=== PATIENT | female | born 1980 | race Caucasian/White ===

== ENCOUNTER → 2017-04-03 | Outpatient (CLI) | payer OTHER ==
[~2017-04-03] MED LIST: IBUP-1050 PO; OXYC-609 PO
--- NOTE | 2017-04-03 12:34 | MAMMOGRAPHY REPORT ---
BILATERAL DIGITAL DIAGNOSTIC MAMMOGRAM TOMOSYNTHESIS WITH CAD AND TARGETED BILATERAL ULTRASOUND: 2016 CLINICAL HISTORY: The patient reports intermittent diffuse pain and heaviness of bilateral breasts fo r the last 3 months. She denies any palpable lumps or skin erythema. She denies any nipple discharg e but does report intermittent flaky skin involving bilateral nipples. TECHNIQUE: Breast tomosynthesis in addition to standard 2D mammography was performed. Current study was also evaluated with a Computer Aided Detection (CAD) system. Bilateral CC and MLO 2-D and tomosy nthesis images were obtained. COMPARISON: Comparison is made to exams dated: 10/14/2014 ultrasound, 10/14/2014 mammogram, 05/13/2014 ultrasound, 05/13/2014 mammogram, 07/28/2012 ultrasound, and 07/28/2012 mammogram - [facility]. BREAST COMPOSITION: The tissue of both breasts is heterogeneously dense, which may obscure small mas ses. FINDINGS: There are possible adjacent obscured masses seen within the right lateral breast on the cc view, for which ultrasound is recommended. Another faint asymmetry is seen within the left upper ou ter quadrant, which likely represents normal fibroglandular tissue although ultrasound is recommended . The remainder of both breasts are stable compared to prior exams, without suspicious masses, calcific ations, or areas of architectural distortion noted. Targeted ultrasound was performed of the right lateral breast in the region of the possible obscured masses. In the right 9:00 breast, 4 cm from the nipple, there are two adjacent hypoechoic solid appe aring masses, one of which measures 6 x 4 x 11 mm, and the other of which measures 7 x 13 x 5 mm. Th zhane masses are felt to correspond with the mammographic nodularity and may represent fibroadenomas ve rsus nodular normal fibroglandular tissue. Ultrasound of the left upper outer quadrant was performed , which shows an oval circumscribed hypoechoic 8 x 4 x 7 mm mass in the left 2:00 periareolar breast which appears similar to the right breast masses and may represent a fibroadenoma versus normal tissu e. Recommend ultrasound guided biopsy of the largest right breast mass for further evaluation. No s onographic correlate for the left upper outer quadrant asymmetry is seen; the asymmetry is benign and compatible with normal fibroglandular tissue. IMPRESSION: ACR BI-RADS CATEGORY 4A: LOW SUSPICION FOR MALIGNANCY, TARGETED ULTRASOUND ACR BI-RADS C ATEGORY 4A: LOW SUSPICION FOR MALIGNANCY 1. Three similar-appearing hypoechoic masses, 2 in the right breast at 9:00 and one in the left breas t at 2:00. The masses may represent fibroadenomas versus nodular normal fibroglandular tissue. Po mmend ultrasound guided biopsy of the largest mass in the right breast. Pending benign pathology res ults, recommend follow-up bilateral diagnostic mammograms and ultrasound in 6 months to reevaluate th e other similar-appearing masses. 2. No etiology for bilateral breast pain and heaviness evident. Recommend clinical follow-up. A phone call was made to the physician's office to confirm faxed results were received. The patient has been verbally notified of the results. She tentatively scheduled the biopsy before leaving the [facility]. Approximately 10% of breast cancers are not detected with mammography. A negative mammographic report should not delay biopsy if a clinically suggestive mass is present. Vanessa Hughes M.D. ah/:04/03/2017 11:33:46 Application Support Technician: Destinee CHAPARRO(Marvin)(Tish), [facility] letter sent: Abnormal 4/5 BI-RADS Code: ACR BI-RADS Category 4A: Low Suspicion For Malignancy Ultrasound BI-RADS: ACR BI-RADS Category 4A: Low Suspicion For Malignancy
== END | disposition home or self-care (01) ==
LOC: C.MAMM 09:49
PROVIDERS: ATTEND Family Medicine Adult Medicine
DX: Z12.31 Encounter for screening mammogram for malignant neoplasm of breast (principal); N63 Unspecified lump in breast; N64.89 Other specified disorders of breast

== ENCOUNTER → 2017-04-12 | Outpatient (CLI) | payer OTHER ==
--- NOTE | 2017-04-12 11:33 | Discharge Instructions ---
Discharge Instructions Procedure Procedure Date: Apr 12, 2017. Reason for visit: Right Mass. Discharge Discharge Date: Apr 12, 2017. Discharge Diagnosis: status post breast biopsy Instructions Activity Recommendations: Additional Limitations (see below) Return to School/Work: no limitations Recommended Home Diet: No Limitations Provider Instructions: ACTIVITY RECOMMENDATIONS: * No lifting, pushing, pulling or exercising the affected side for three days. RETURN TO SCHOOL/WORK: * You may return to work/school after the procedure, but do not perform any strenuous activities for 24 to 48 hours. MEDICATIONS: * Tylenol (two 325 mg) every four to six hours if needed for mild pain (if not allergic to Tylenol). DIET: * Resume previous diet. SPECIAL CARE INSTRUCTIONS: * Keep biopsy site dry for 24 hours. May shower after 24 hours, but do not soak (bathe) incision. * May remove Tegaderm (plastic patch) tomorrow AFTER showering. * Leave the steri-strips on for one week. Allow the steri-strips to fall off by themselves. If not off after one week, you may remove them. You may place a Bandaid crosswise over the strips, if desired. * Apply ice 10 minutes on and 10 minutes off as needed. * Wear a bra at bedtime to sleep more comfortably for 2-3 days. * Your referring physician should have the results after approximately 5 to 7 business days. * Call for unusual bleeding, fever, drainage, etc or if you have any questions call during normal business hours or after hours call Dr Hughes, [phone]. FOLLOW UP VISIT: Follow-up with Referring Physician as scheduled. Allergies Coded Allergies: Sulfamethoxazole w/Trimethoprim (Verified Allergy, Unknown, Swelling, 02/18) Geeta Dooley Recommendations: Call your doctor if: * Temperature above 101 degrees * Pain not relieved by pain medicine ordered * There is increased drainage or redness from any incision * You have any unanswered questions or concerns. Your Doctors Instructions noted above were prepared by provider Vanessa Hughes. Patient Signature Section: Patient Instructions Signature Page Nicole Cornell Patient (or Guardian) Signature/Date: I have read and understand the instructions given to me by my caregivers. Caregiver/RN/Doctor Signature/Date: The above-named patient and/or guardian has received patient instructions on this date. + Original Patient Signature Page (only) stays with chart. Please make copy for patient.
--- NOTE | 2017-04-12 12:45 | MAMMOGRAPHY REPORT ---
UNILATERAL RIGHT DIGITAL DIAGNOSTIC MAMMOGRAM TOMOSYNTHESIS: 04/12/2017 CLINICAL HISTORY: Status post ultrasound-guided right breast biopsy. TECHNIQUE: Breast tomosynthesis in addition to standard 2D mammography was performed. Postprocedura l right CC and ML tomosynthesis images including C views were obtained. COMPARISON: Comparison is made to exams dated: 04/03/2017 ultrasound, 04/03/2017 mammogram, 10/14/2014 ul trasound, and 10/14/2014 mammogram - [facility]. BREAST COMPOSITION: The tissue of the right breast is heterogeneously dense, which may obscure small masses. FINDINGS: A new biopsy marker clip is seen in the right upper outer quadrant status post ultrasound guided biopsy of the right 9:00 breast mass. The biopsy clip is located in the region of the nodular ity seen during the recent diagnostic workup, indicating good correlation between the mammographic an d sonographic findings. No significant postbiopsy hematoma is seen. IMPRESSION: POST PROCEDURE IMAGING FOR MARKER PLACEMENT New biopsy marker clip status post ultrasound guided biopsy of a right 9:00 breast mass. Pathology r esults are pending. Pending benign pathology results, recommend follow-up bilateral diagnostic tomosy nthesis mammograms and ultrasound in 6 months to reevaluate the other similar-appearing masses. Approximately 10% of breast cancers are not detected with mammography. A negative mammographic report should not delay biopsy if a clinically suggestive mass is present. Vanessa Hughes M.D. /:04/12/2017 11:46:15 Objects Conservator: Valentina CHAPARRO(Marvin)(Tish), [facility] BI-RADS Code: Post Procedure Imaging For Marker Placement
--- NOTE | 2017-04-12 12:45 | MAMMOGRAPHY REPORT ---
THIS REPORT HAS BEEN AMENDED. ULTRASOUND GUIDED BIOPSY RIGHT BREAST: 04/12/2017 CLINICAL HISTORY: Right 9:00 breast mass. PATIENT CONSENT: The procedure, risks and benefits were discussed with the patient and informed writt en consent was obtained. A timeout was performed immediately prior to the procedure. PROCEDURE DESCRIPTION: With ultrasound guidance, aseptic technique, and lidocaine as the local anesth etic (1% lidocaine to anesthetize the skin and 1% lidocaine with epinephrine to anesthetize the deepe r tissues), the mass of concern in the right 9:00 breast was sampled 3 times with a 14-gauge Achieve biopsy needle. Immediately thereafter, with ultrasound guidance, aseptic technique, and lidocaine as the local anesthetic, a metallic localizer clip was placed at the biopsy site. Direct pressure was applied to the site immediately post procedure and hemostasis was achieved. Postprocedure unilateral mammograms were performed to confirm placement of the clip in the expected location of the breast ma ss. The patient tolerated the procedure without complication. She was given wound care instructions . The specimens were sent to pathology for analysis. COMPARISON: Comparison is made to exams dated: 04/03/2017 ultrasound, 04/03/2017 mammogram, 10/14/2014 ul trasound, 10/14/2014 mammogram, 05/13/2014 ultrasound, and 05/13/2014 mammogram - [facility]. IMPRESSION: ULTRASOUND GUIDED BIOPSY Ultrasound-guided core needle biopsy of the largest mass in the right 9:00 breast, with clip placemen t. The patient will receive pathology results from her referring provider. Pending benign pathology results, recommend follow-up bilateral diagnostic tomosynthesis mammograms and ultrasound in 6 month s to reevaluate the other similar-appearing masses. Vanessa Hughes M.D. ah/:04/12/2017 11:35:19 Shipyard Painter: Valentina CROCKETT)(M), [facility] AMENDMENT: 04/25/2017 Vanessa Hughes M.D. The pathology results from right breast ultrasound-guided biopsy were reviewed on 04/25/2017. The pat hology shows benign breast tissue, which is concordant with the imaging findings. Recommend follow-up bilateral diagnostic tomosynthesis mammograms and ultrasound in 6 months to reevaluate the other sim ilar-appearing masses.
== END | disposition home or self-care (01) ==
LOC: C.MAMM 11:01
PROVIDERS: ATTEND Family Medicine
DX: N63 Unspecified lump in breast (principal)

== ENCOUNTER → 2017-10-28 | Outpatient (CLI) | payer BC | END | disposition home or self-care (01) | LOC: C.LABBFT 10:35 | PROVIDERS: ATTEND Physician Assistant Medical | DX: R10.9 Unspecified abdominal pain (principal) ==

== ENCOUNTER → 2017-11-19 | Outpatient (CLI) | payer BC | END | disposition home or self-care (01) | LOC: C.PAPS 14:18 | PROVIDERS: ATTEND Nurse Practitioner | DX: Z01.419 Encounter for gynecological examination (general) (routine) without abnormal findings (principal) ==

== ENCOUNTER → 2018-01-14 | Outpatient (CLI) | payer BC ==
--- NOTE | 2018-01-15 07:52 | MAMMOGRAPHY REPORT ---
BILATERAL DIGITAL DIAGNOSTIC MAMMOGRAM TOMOSYNTHESIS WITH CAD AND TARGETED BILATERAL ULTRASOUND: 01/14 CLINICAL HISTORY: 37-year-old woman presents for follow-up in both breasts. She is status post right breast biopsy in the 9:00 axis which yielded benign pathology results. Close follow-up of other jayant ign-appearing masses versus normal dense glandular tissue in the 9:00 right breast and 2:[address] Patient also reported fullness in the right upper outer quadrant today, which is the beginning o f her menstrual cycle. TECHNIQUE: Bilateral breast tomosynthesis in addition to standard 2D mammography was performed. Curre nt study was also evaluated with a Computer Aided Detection (CAD) system. COMPARISON: Comparison is made to exams dated: 04/12/2017 mammogram, 04/03/2017 mammogram, 10/14/2014 ma mmogram, 05/13/2014 mammogram, and 07/28/2012 mammogram - [facility]. BREAST COMPOSITION: The tissue of both breasts is heterogeneously dense, which may obscure small mas ses. FINDINGS: There is a stable metallic biopsy marker clip in the upper outer middle one third of the ri ght breast, denoting the site of prior benign biopsy. The glandular pattern is similar to prior mammo grams. No obvious new masses, calcifications, areas of architectural distortion or asymmetries are s een bilaterally. Targeted ultrasound was performed in the right upper outer quadrant, with particular attention to the 2 masses in the 9:00 axis, and also in the left 2:00 periareolar breast. Throughout the right upper outer quadrant, areas of dense glandular tissue are seen. The biopsy marker clip is seen within the biopsied mass in the 9:00 axis, 4 cm from the nipple, which is difficult to measure on the current e xam as it is less conspicuous but measures approximately 6.5 x 4.0 x 7.5 mm. In the second adjacent mass in the 9:00 axis, 4 cm from the nipple measures approximately 10.8 x 4.4 x 7.7 mm. It is unclea r if these could represent areas of normal dense glandular tissue and stromal fibrosis versus true ma sses but they appear similar to the prior ultrasound. In the 2:00 periareolar left breast, again the re is an ovoid circumscribed hypoechoic lesion which could represent stromal fibrosis or a benign mas s such as a fibroadenoma. It currently measures 7.4 x 3.6 x 6.0 mm and is also unchanged. IMPRESSION: ACR-BI-RADS CATEGORY 3: PROBABLY BENIGN, TARGETED ULTRASOUND ACR-BI-RADS CATEGORY 3: PRO BABLY BENIGN 1. Stable mammographic appearance of the breasts, including a stable metallic biopsy marker clip in the right upper outer quadrant. 2. Stable sonographic appearance of benign-appearing masses versus areas of stromal fibrosis in the right 9:00 and left 2:00 breast. Another six-month follow-up targeted bilateral ultrasound is recomm ended to ensure longer stability. 3. No new suspicious mammographic or targeted sonographic abnormality in the right upper outer quadr ant in the area of pain described by the patient. Continued clinical follow-up and clinical monitori ng is recommended. 4. Recommend bilateral diagnostic tomosynthesis mammograms and repeat targeted ultrasound in 6 month s to ensure longer stability. These results and recommendations were discussed with the patient at the time of the exam. Approximately 10% of breast cancers are not detected with mammography. A negative mammographic report should not delay biopsy if a clinically suggestive mass is present. Valentine Parsons M.D. ay/:01/14/2018 09:00:05 Drapery Worker: Abdoulaye CHAPARRO(Marvin)(M), [facility] letter sent: Follow Up Recommended 3 BI-RADS Code: ACR-BI-RADS Category 3: Probably Benign Ultrasound BI-RADS: ACR-BI-RADS Category 3: Pr obably Benign
== END | disposition home or self-care (01) ==
LOC: C.MAMM 08:19
PROVIDERS: ATTEND Family Medicine
DX: R92.8 Other abnormal and inconclusive findings on diagnostic imaging of breast (principal)

== ENCOUNTER 2019-01-23 06:07 | Observation (INO) ==
--- NOTE | 2019-01-07 16:16 | Anesthesiology Consultation ---
Date of Service January 07, 2019 Assessment & Plan (1) Encounter for pre-operative examination: Chart Review Chart Review: Acceptable Risk for Surgery and Patient seen in Pre Admission Testing Teaching & Discussion Instructed NPO after midnight before surgery, except medications with 15 cc of water. Medication instructions provided according to the PAT guidelines. History Surgery Operation Date: 01/23/19 08:50 Proposed Procedures p Robotic Total Laparos Hysterectomy - Rachel Heck MD, FACOG Height/Weight Height: 5 ft 6 in Weight: 76.9 kg Allergies Allergy/AdvReac Type Severity Reaction Status Date / Time Bactrim Allergy Unknown Swelling Verified 02/19/16 16:56 sulfamethoxazole Allergy Unknown Swelling Verified 01/01/19 08:11 trimethoprim Allergy Unknown Swelling Verified 01/01/19 08:11 Medications Home Medications Medication Instructions Recorded Confirmed Last Taken multivitamin 1 cap PO QAM 01/01/19 01/01/19 Unknown Past Medical History Medical History No known health problems Past Surgical History Surgical History History of ear surgery had bmt and then removal History of tonsillectomy and adenoidectomy Hx of myomectomy removal of fibroids Past Anesthesia History No Hx of Anesthesia Complications and No Family Hx of Anesthesia Complications History of PONV No Motion Sickness Screening History of Motion Sickness: No Social History Smoking Status: Former smoker Smoking End Date: quit 2013 Hx Alcohol Use: Yes Alcohol type: beer alcohol intake frequency: a few times a week Hx Substance Use: No substance use type: does not use Exercise / Class Metabolic Activity II 4-5 Yardwork/Stairs/Walk up hill Review of Systems Pt denies any recent chest pain, shortness of breath, palpitations, cough, fever or URI. Physical Exam Vital Signs BP: 94/59 (pt states this is normal BP for her, asymptomatic) P: 63bpm SPO2: 98% RA T: 98.2 F R: 12 ENMT Mouth: + dental restorations (few crowns); no chipped teeth and no loose teeth Thyromental Distance: < 3.5 Finger Breadths (3) Mallampati Class: I Neck normal visual inspection; neck extension not limited Respiratory normal respiratory effort Auscultation: lungs clear to auscultation bilaterally Cardiovascular Rate/Rhythm: regular rate and regular rhythm Heart Sounds: no murmur Extremities: no edema Testing Laboratory Results 01/07/19 16:05 01/07/19 16:05 Blood Type A Negative 01/07/19 16:05 Antibody Screen NEGATIVE 01/07/19 16:05
[2019-01-07 16:34] LABS: Basophils # (auto) 0.04 K/uL (0-0.2); Basophils % (auto) 0.6 %; Eosinophils # (auto) 0.15 K/uL (0-0.5); Eosinophils % (auto) 2.2 %; Hematocrit (blood only) 38.2 % (37-47); Hemoglobin 13.4 g/dL (12.0-16.0); Immature Granulocytes # (auto) 0.01 K/uL (0.00-0.02); Immature Granulocytes % (auto) 0.1 %; Lymphocytes # (auto) 2.92 K/uL (1.2-3.4); Lymphocytes % (auto) 42.9 %; Mean Corpuscular Hgb Conc 35.1 g/dL (32-36); Mean Corpuscular Volume 85.3 fL (80-100); Mean Platelet Volume 10.3 fL (7.4-10.4); Monocytes # (auto) 0.71 K/uL (0.11-0.59); Monocytes % (auto) 10.4 %; Neutrophils # (auto) 2.97 K/uL (1.4-6.5); Neutrophils % (auto) 43.8 %; Platelet Count 207 K/uL (130-400); RDW Coefficient of Variation 12.7 % (11.5-14.5); RDW Standard Deviation 39.4 fL (36.4-46.3); Red Blood Count 4.48 M/uL (4.2-5.4)
[2019-01-07 16:57] LABS: BUN Creatinine Ratio 12.8 (10-20); Calcium 8.8 mg/dl (8.5-10.1); Creatinine Clr Calc Pharmacy 105.1 ml/min; Est GFR (African American) 115.3; Est GFR (Non-African American) 99.5
[~2019-01-23 06:07] MED LIST changes: +CEFAZOLIN 2000MG 2,000 MG/15 ML SYR IV SCH; -IBUP-1050 PO; +LACTATED RINGER'S 1,000 ML IV SCH; +LR 15ML/HR IV SCH; -OXYC-609 PO
[2019-01-23] MEDS ORDERED: ATROPINE SULFATE 0.1 MG/ML 10ML SYR IV PRN (06:40)
[2019-01-23] MEDS ORDERED: ONDANSETRON INJ 2 MG/ML 2 ML VIAL IV PRN ×2 (06:40→09:13)
[2019-01-23] MEDS ORDERED: ePHEDrine sulfate 50 MG/ML AMP IV PRN (06:40)
[2019-01-23] MEDS ORDERED: BUPIVACAINE 0.5 % 5 MG/1 ML MPF 30ML VIAL ONE (07:04)
[2019-01-23] MEDS ORDERED: METHYLENE BLUE 0.5% 10 ML VIAL ONE (07:04)
--- NOTE | 2019-01-23 07:04 | History & Physical Bridge Note ---
Date of Service January 23, 2019 History & Physical Bridge Note I have examined the patient, reviewed the History & Physical and in the interval since the performance of the History & Physical I have noted the following changes of clinical significance: no changes noted
[2019-01-23] MEDS ORDERED: fentaNYL citrate 100 MCG/2 ML VIAL ONE (07:09)
[2019-01-23] MEDS ORDERED: ROCURONIUM BROMIDE 10 MG/ML 5 ML VIAL ONE (07:09)
[2019-01-23] MEDS ORDERED: PROPOFOL IV EMULSION 10 MG/ML 20 ML VIAL IV ONE (07:09)
[2019-01-23] MEDS ORDERED: MIDAZOLAM HCL 1 MG/ML 2ML VIAL ONE (07:09)
[2019-01-23] MEDS ORDERED: LIDOCAINE HCL 2% 2 ML VIAL/AMP(20MG/ML) INFIL ONE (07:09)
[2019-01-23] MEDS ORDERED: HYDROmorphone INJ 2 MG/ML SYR/VIAL ONE (07:42)
[2019-01-23] MEDS ORDERED: ONDANSETRON INJ 2 MG/ML 2 ML VIAL ONE (08:18)
[2019-01-23] MEDS ORDERED: GLYCOPYRROLATE 0.2 MG/ML VIAL ONE (08:18)
[2019-01-23] MEDS ORDERED: DEXAMETHASONE SOD INJ 4 MG/ML VIAL ONE (08:18)
[2019-01-23] MEDS ORDERED: NEOSTIGMINE METHYLSULFATE 5 MG/5 ML SYR ONE (08:18)
[2019-01-23] MEDS ORDERED: KETOROLAC 30 MG/ML VIAL IV PRN (09:13)
[2019-01-23] MEDS ORDERED: SIMETHICONE 80 MG CHEW PO PRN (09:13)
[2019-01-23] MEDS ORDERED: PROMETHAZINE HCL 12.5 MG in SODIUM CHLORIDE 0.9% 50 ML IV PRN (09:13)
[2019-01-23] MEDS ORDERED: MAGNESIUM HYDROXIDE SUSP 30 ML UDC PO PRN (09:13)
[2019-01-23] MEDS ORDERED: IBUPROFEN 600 MG TAB PO PRN (09:13)
[2019-01-23] MEDS ORDERED: ACETAMINOPHEN 325 MG TAB PO PRN (09:13)
[2019-01-23] MEDS ORDERED: OXYCODONE/ACETAMINOPHEN 5mg/325mg TAB PO PRN (09:13)
[2019-01-23] MEDS ORDERED: BISACODYL 10 MG SUPP PR PRN (09:13)
[2019-01-23] MEDS ORDERED: ZOLPIDEM TARTRATE 5 MG TAB PO PRN (09:13)
[2019-01-23] MEDS ORDERED: MEPERIDINE HCL 50 MG/ML CARP IV PRN (09:13)
[2019-01-23] MEDS ORDERED: LACTATED RINGER'S 1,000 ML IV SCH (09:15)
--- NOTE | 2019-01-23 09:20 | Operative Report ---
Post Operative Report Pre & Post Diagnosis Operation Date: 01/23/19 07:30 Pre-Op Diagnosis: Mass of Pelvis, Pelvic Pain, Menometrorrhagia Post-Op Diagnosis: Mass of Pelvis, Pelvic Pain, Menometrorrhagia Procedure Operation Date: 01/23/19 07:30 Actual Procedures p Robotic assisted Total Laparoscopic Hysterectomy, bilateral salpingectomy, cystoscopy(Not Applicable) - Rachel Heck MD, FACOG Surgeon Rachel Heck MD, FACOG Closer On none Estimated Blood Loss 10 Findings Consistent with Post-Op Diagnosis Specimens Uterus bilateral fallopian tubes cervix Description of Procedure Patient was given a general anesthetic prepped in dorsal lithotomy position in yellowfin Jermaine stirrups IV Ancef given preoperatively care was taken in p ositioning of the patient to avoid any undue pressure on limbs or fingers. Procedure was started by placing a Vargas catheter and bladder attaching a V care to her cervix in the usual fashion and then gloves were changed and a subumbilical incision was made with scalpel using Mac technique we did a cutdown until into the peritoneal cavity blunt-tipped Mac trocar then placed balloon inflated to stabilize the ports CO2 gas used to insufflate the abdomen. Findings upper abdomen normal no sign of visceral organ injury Deep Trendelenburg was then obtain Findings small anterior fibroid no significant adhesions both ovaries appeared within normal limits no endometriosis visualized in the cul-de-sac pelvic sidewalls uterus bladder flap ureters followed in normal course 2 robotic ports one in the left one on the right were placed under direct visualization an 11 mm accessory port platelets was then placed in the left upper quadrant robot was docked arm #1 was monopolar elder #2 bipolar [place] procedure was begun by first removing the fallopian tubes in the left and right side and then removing these through the accessory port we identified the ureter location on the left side followed a normal course we then coagulated the utero- ovarian blood supply distal to the left ovary and then cut this with monopolar elder same process with the round ligament uterine vessels were then skeletonized on the left bladder flap sharply dissected away we then were able to coagulate the uterine vessels on the left side we were well away from the left ureter vessels were then cut with monopolar elder We performed the right side in the same fashion as the left side once both uterine vessels had been coagulated and cut we did perform the colpotomy with the monopolar elder once complete the uterus was pulled into the vagina and removed sponge and a glove was then placed to maintain pneumoperitoneum IV methylene blue was given by anesthesia instrument exchange occurred arm #1 became the JONNY needle jitney driver arm #2 the Wellra grasper 12 inch 2 oh 90-day V lock suture passed the excess report we then closed the cuff from left to right back right to left full-thickness at least 1 cm bites of vaginal mucosa were taken. Suture was then cut so there was no tail need to remove the excess report at this stage after generous irrigation and suction hemostasis was excellent I was able to apply 4 cc of Tisseel to the pedicles. There was no leakage of blue dye. Instruments removed from the pelvis the robot was undocked undocked. Cystoscopy was then performed at this time we remove the Vargas catheter and visualized and normal bladder no sign of injury no pathology good strong jets of bluish-green dye from both left and right ureter openings cystoscope removed and new Vargas catheter placed there is no bleeding from the vagina sponge had been removed previously. Instruments had been removed from the abdomen including the ports gas have been allowed to escape 0.5% Marcaine injected into the incisions fascia closed in the umbilical and left upper quadrant incisions 4-0 subcuticular Monocryl closures and Dermabond applied sponge and instrument counts were correct I attest to the content of the Intraoperative Record and any orders documented therein. Any exceptions are noted below.
[2019-01-23] MEDS ORDERED: TISSEEL FIBRIN SEALANT 4ML TOP ONE (09:30)
[2019-01-23] MEDS: fentaNYL citrate 100 MCG/2 ML VIAL IV PRN ×2 (09:43→09:48)
--- NOTE | 2019-01-23 10:04 | Anesthesiology Progress Note ---
Date of Service January 23, 2019 Anesthesia Post Procedure Vital Signs Vital Signs: Temp Pulse Resp BP Pulse Ox 01/23/19 09:55 49 L 14 110/67 95 01/23/19 09:45 53 L 14 122/69 100 01/23/19 09:35 60 11 L 114/75 100 01/23/19 09:25 97.7 F 76 18 141/72 H 99 Pain Intensity Abdomen: Pain Intensity: 5 Notes Mental Status: alert / awake / arousable and participated in evaluation Patient Amnestic to Procedure: Yes Nausea / Vomiting: adequately controlled Pain: adequately controlled Airway Patency, RR, SpO2: stable & adequate BP & HR: stable & adequate Hydration State: stable & adequate Anesthetic Complications: no major complications apparent and Pt Satisfied with anesthetic care
[2019-01-23] MEDS: OXYCODONE/ACETAMINOPHEN 5mg/325mg TAB PO PRN ×2 (12:13→16:35)
[2019-01-23] MEDS ORDERED: DOCUSATE SODIUM 100 MG CAP PO SCH (21:00)
--- NOTE | 2019-01-26 16:40 | Discharge Summary ---
Date of Service January 26, 2019 Patient had a TLH and was discharged same day. Was ambulating, tolerating oral diet, minimal bleeding, pain well controlled Admission Exam (Per Admitting) Constitutional WD/WN, vitals as above Discharge Data Procedures Performed Operation Date: 01/23/19 07:30 Actual Procedures p Robotic assisted Total Laparoscopic Hysterectomy, bilateral salpingectomy, (Not Applicable) - Rachel Heck MD, FACOG s Cystoscopy(Not Applicable) - Rachel Heck MD, FACOG Hospital Course (1) Menorrhagia: Met criteria. Discharge instructions reviewed.
--- OUTSIDE RECORDS SUMMARY | 2019-01-26 21:48 | External Medical Summary | Continuity of Care Document ---
:1980 Author Name Parul Bowman, Provider Address Unavailable Unavailable , Care Team Providers Name Role Phone German Martinez M.D. Unavailable [email or web address] Rachel Heck M.D. Unavailable [email or web address] ZACARIAS FROST M.D., [place] Unavailable Unavailable Unavailable Unavailable Unavailable Problems Vaginitis (616.10) (N76.0) Acute upper respiratory infection (465.9) (J06.9) Anxiety (300.00) (F41.9) Eustachian tube dysfunction (381.81) (H69.80) Acute bronchitis with bronchospasm (466.0) (J20.9) Back pain (724.5) (M54.9) Solitary pulmonary nodule (793.11) (R91.1) Fertility testing (V26.21) (Z31.41) Elective (635.90) (Z33.2) Costochondritis (733.6) (M94.0) Flank pain, acute (789.09) (R10.9) Encounter for routine gynecological exam ination with Papanicolaou smear of cervix (V72.31) (Z01.419) Mass of pelvis (789.30) (R19.00) ADHD (attention deficit hyperactivity disorder), combi shasha type (314.01) (F90.2) Acute sinusitis (461.9) (J01.90) Uterine leiomyoma (218.9) (D25.9) Menometrorrhagia (626.2) (N92.1) Pelvic pain (R10.2) Nocturnal leg cramps (327.52) (G47.62) Restless leg syndrome (333.94) (G25.81) Fatigue (780.79) (R53.83) Allergies and Adverse Reactions Bactrim TABS (Allergy) Medications Multivitamin Adult Oral Tablet Start: Refills: 0 Pramipexole Dihydrochloride 0.125 MG Ora l Tablet; 1 -2 pills in the evening for restless leg syndrome and leg cramps. Colby Martinez Start: 11-Jan-20 19 Quantity: 60 Refills: 5 Procedures Lyme Disease AB IgG,IgM w/WB Reflex Date: 10-Jan-2019 History of Tonsillectomy Status: Complet ed History of Tympanoplasty Status: Complet ed History of Myringotomy - Left Ear Status : Completed History of Myringotomy - Right Ear Statu s: Completed History of Surgically Induced - By Status: Completed Dilation And Curettage Immunizations Immunizations not documented Family History Father Family history of Leukemia, chronic (208.10) (C95.10) Status : Active Plan of Treatment Planned Encounters Appointment; Rachel Heck M.D. Start: 09-Feb-2019 15:00 Request Planned Observations Planned Goals not documented Results CBC With DIFF Laboratory: [facility] [address] [facility] [address] tel: 07-Jan-2019 16:05 WBC 6.80 K/uL Range: 4.8-10.8 K/u L RBC 4.48 {M/uL} Range: 4.2-5.4 M/uL HEMOGLOBIN 13.4 g/dL Range: 12.0-16.0 g /dL HEMATOCRIT 38.2 % Range: 37-47 % MCV 85.3 fL Range: 80-100 fL MCH 29.9 pg Range: 25-34 pg MEAN CORPUSCULAR HGB CONC 35.1 Range: 3 2-36 g/dL g/dL RED CELL DISTRIBUTION WIDTH SD Range: 3 6.4-46.3 fL 39.4 fL RED CELL DISTRIBUTION WIDTH CV Range: 1 1.5-14.5 % 12.7 % PLATELET COUNT 207 K/uL Range: 130-400 K/uL MEAN PLATELET VOLUME 10.3 fL Range: 7.4 -10.4 fL NEUT % 43.8 % Range: % LYMPH % 42.9 % Range: % MONO % 10.4 % Range: % EOS % 2.2 % Range: % BASO % 0.6 % Range: % IG% 0.1 % Range: % Comments: IG paramet er reflects the combination of Metas, Myelos andPromyelocytes. Neutrophils (Auto) 2.97 K/uL Range: 1. 4-6.5 K/uL LYMPH ABS # 2.92 K/uL Range: 1.2-3.4 K/ uL MONO ABS # 0.71 K/uL (above Range: 0.11 -0.59 K/uL high threshold) EOS ABS # 0.15 K/uL Range: 0-0.5 K/uL BASO ABS # 0.04 K/uL Range: 0-0.2 K/uL IG# 0.01 K/uL Range: 0.00-0.02 K/ uL Basic Metabolic Panel Laboratory: [facility] [address] [facility] [address] tel: 07-Jan-2019 16:05 SODIUM 138 mmol/L Range: 136-145 mmol /L POTASSIUM 4.0 mmol/L Range: 3.5-5.1 mmo l/L CHLORIDE 107 mmol/L Range: 98-107 mmol/ L CARBON DIOXIDE 27 mmol/L Range: 21-32 m mol/L ANION GAP 4.0 Range: 3-11 BLOOD UREA NITROGEN 10 mg/dl Range: 7-1 8 mg/dl CREATININE 0.76 mg/dl Range: 0.6-1.2 mg /dl Estimated Creatinine Clearance Range: m l/min 105.1 ml/min Comments: Est. Creat inine Clearance (Mod Cockcroft-Gault) for pharmacydosing purposes. Estimated GFR ( Comments: Units: ml/min per [place]) 115.3 1.73 meters squaredT he estimated GFR (CKD-E PI equation) has not be en validatedfor inpatie nt settings and may not be an accurate reflectiono f renal function in critical ly ill patients or those wi thrapidly changing renal funct ion (e.g. MICHA). Estimated GFR (Non- Comments: Uni ts: ml/min per [place]) 99.5 1.73 meters squaredT he estimated GFR (CKD-E PI equation) has not be en validatedfor inpatie nt settings and may not be an accurate reflectiono f renal function in critical ly ill patients or those wi thrapidly changing renal funct ion (e.g. MICHA). BUN/CREATININE RATIO 12.8 Range: 10-20 GLUCOSE 88 mg/dl Range: 70-99 mg/dl CALCIUM 8.8 mg/dl Range: 8.5-10.1 mg/ dl Erythrocyte Sedimentation Laboratory: [facility] Laboratory Rate - ESR [address] [address] tel: 10-Jan-2019 11:35 ERYTHROCYTE SEDIMENTATION RATE Range: 0 -21 mm/hr 5 {mm/hr} Magnesium Laboratory: [facility] [address] [address] tel: 10-Jan-2019 11:35 MAGNESIUM 2.0 mg/dl Range: 1.8-2.4 mg/d l Ultra TSH Laboratory: [facility] [address] [address] tel: 10-Jan-2019 11:35 TSH 1.610 {uIu/ml} Range: 0.300-4.500 uIu/ml Comments: The refere nce range for TSH is 0.3-4.5 uIU/ml.Some have suggested that TSH levels >2.5 uIU/ml should beconsidered abnormal, particularly in potentially symptomaticyounger individuals.TSH levels in he althy elderly (>75 y ears of age) are oftenat or even above the reference range.Normal first trimester TSH <2.0 uIU/ml.Normal second and third trimester TSH <3.0 uIU/ml.TSH 0.5-2.0 uIU/ml is oft en considered the op timaltherapeutic target for replacement treatment ofhypothyroidism. LYME DISEASE AB IGG AND Laboratory: [facility] Laboratory IGM [address] [place] [address] tel: 10-Jan-2019 11:35 Lyme Disease AB IGG Negative Range: Neg ative Lyme Disease AB IGM Negative Range: Neg ative Serum Laboratory: [facility] Laboratory Qualitative [address] [place] [address] tel: 10-Jan-2019 11:35 BHCG QUALITATIVE (PREG,SERUM) Range: Ne gative Negative , Urine - Point Laboratory: [facility] Laboratory Of Care (Pending) [address] [address] tel: 23-Jan-2019 6:34 , Urine (Point of Range: NEG Care) NEG TYPE/SCREEN Hold Profile Laboratory: [facility] [address] [facility] [address] tel: 23-Jan-2019 7:08 TYPE/SCREEN HOLD PROFILE Run: 01/23/19808 [facility] -----Name: ANDRES GAY Age/Sex: 38/F Location: [facility]: [id number] Unit: [id number] Status: REG [facility] Room/Bed:Re01/23/19 Disch: Att Dr: Rachel Heck, --------- Spec: [id number] Collected: 01/23/19Received: 01/23/19 [facility] Dr: Rachel Heck, [facility] To: Bronson Frost III, [employer]: (NO ORDERED PRODUCTS)Ord Tests: TSComments: Reason for Exam pre-opQueries: Patient Confirmed NIf Not Currently , Preg or Miscarriage Last 3 Mo? NoTransfusion of Blood, Platelets, FFP in Past 3 Months? NoHas Patient Ever Had a Blood Transfusion? No -Test Result Flag Reference Site ---Blood Type A NegAntibody Screen NEGATIVE -------Tests: Date Time Order Change Action User01/23/19 0707 TS 1 NEW [id number] END OF REPORT Vital Signs 10-Jan-2019 11:01 Systolic 108 mm[Hg] Comments: Location: RUE; Position: Sitting Diastolic 68 mm[Hg] Comments: Location: RUE; Position: Sitting Weight 168 lb BMI Calculated 32.54 kg/m2 BSA Calculated 1.74 m2 Heart Rate 64 /min Comments: Location: R Radial; Quality: Regular 07-Jan-2019 15:04 Systolic 118 mm[Hg] Diastolic 62 mm[Hg] Weight 169.2 lb BMI Calculated 32.77 kg/m2 BSA Calculated 1.74 m2 Height 60.25 in Encounters Appointment; Rachel Heck M.D. 23-Jan-2019 7:30 Encounter Diagnosis: Problem not documented Appointment; Raffaele Provider 10-Jan-2019 11:00 Encounter Diagnosis: Problem not documented Appointment; Rachel Heck M.D. 07-Jan-2019 15:00 Encounter Diagnosis: Problem not documented Appointment; OBGYN SC2, Ultrasound 21-Jul-2018 15:30 Encounter Diagnosis: Problem not documented Appointment; Delores Wilhelm CRNP 07-Jul-2018 16:00 Encounter Diagnosis: Problem not documented Appointment; Temi Norman PA-C 13-Jun-2018 15:30 Encounter Diagnosis: Problem not documented Appointment; Temi Norman PA-C 12-May-2018 15:30 Encounter Diagnosis: Problem not documented Appointment; Rachel Heck M.D. 29-Apr-2018 16:15 Encounter Diagnosis: Problem not documented Appointment; Delores Wilhelm CRNP 19-Nov-2017 16:00 Encounter Diagnosis: Problem not documented Appointment; Delores Wilhelm CRNP 28-Oct-2017 10:00 Encounter Diagnosis: Problem not documented Appointment; Rachel Heck M.D. 09-Feb-2019 15:00 Encounter Diagnosis: Problem not documented
== END 2019-01-23 19:20 | disposition home or self-care (01) ==
LOC: 4N 06:07 → ASU 06:07